=== PATIENT | female | born 1950 | race Caucasian/White ===

== ENCOUNTER 2019-08-12 11:04 | Inpatient (IN) | payer OTHER, MEDICAID ==
[~2019-08-12] VITALS: Ht 165.1 cm; Wt 65.0 kg
--- NOTE | 2019-08-12 11:10 | NUR ---
PT BIBA FROM HOME, C/O OF RIGHT SIDE HIP PAIN, S/P FALL FROM LAST NIGHT. PER MEDIC PATIENT FAMILY FOUND PATIENT ON THE BATHROOM FLOOR AND TRANSFERED HER TO HER BED AND THIS MORNING FAMILY CALLED MEDICS BECAUSE PT PAIN WORSEN. PER MEDICS FENTANYL 200 MCG IV WAS GIVEN IN ROUTE. PATIENT UNABLE TO TRASFER FROM GURNEY TO BED. PATIENT AAOX3, UNABLE TO RECALL LOCATION. PATIENT IS AUSTRIAN SPEAKER. PATIENT STATES SHE FELL LAST NIGHT IN THE BATHROOM, SHE FELT WEAK IN HER LEGS, COULD NOT TOLERATE PAIN ANY LONGER AND PT ASKED FAMILY TO CALL MEDICS. NO ACUTE DISTRESS NOTED AT THIS TIME, PT STATES HER WHOLE RIGHT SIDE OF BODY HURTS. PATIENT DENIES HEADACHE, DIZZINESS, COUGH, FEVER, SOB, N/V, OR ANY OTHER SYMPTOMS. PATIENT HAS RIGHT UPPER EXTREMITY SHUNT FOR DIALYSIS, +BRUIT AND THRILL, NO BLEEDING OR INJURY NOTED AT SHUNT SITE. STONG/EQUAL HAND CANNON FIRE DIRECTION SPECIALIST AND +PMCS TO NASIR UPPER EXTREMITIES. PT UNABLE TO MOVE RIGHT LEG UP OR PUSHES, BUT ABLE TO MOVE TOES, +PULSE NOTED, DECREASE MOVEMENT/SENSATION. NOTED RIGHT ANKLE FX, PT STATES FX WAS FROM MONTHS AGO, PT WEARING CAMBOOT, +PULSE,CIRCULATION AND SENSATION WITH DECREASE MOVEMENT. PAITNET IN FULL CREDIT ADVISOR, PULSE OX, GOWNED, X2 RAILS UP, CALL LIGHT WITHIN REACH, MSE DONE BY DR. TURNER, WILL CONTINUE TO MONITOR.
--- NOTE | 2019-08-12 12:18 | NUR ---
PT SLEEPING AT THIS TIME, NO ACUTE DISTRESS NOTED AT THIS TIME, CALL LIGHT WITHIN REACH, WILL CONTINUE TO MONITOR
[2019-08-12 12:36] LABS: BILIRUBIN TOTAL 1.1 mg/dL (0.20-1.00); CALCIUM 8.5 mg/dL (8.5-10.1); CARBON DIOXIDE 29.9 mmol/L (21-32); POTASSIUM SERUM 4.2 mmol/L (3.5-5.1)
[2019-08-12 12:39] LABS: ALBUMIN 1.8 g/dL (3.4-5.0); CREATININE SERUM 5.6 mg/dL (0.6-1.0); TOTAL PROTEIN, SERUM 5.6 g/dL (6.4-8.2)
--- NOTE | 2019-08-12 13:05 | NUR ---
PATIENT SLEEPING, EASY TO AROUSE BY CALLING HER NAME. PT STATES SHE HAS NO PAIN AT THIS TIME, ONLY IF SHE MOVES HER RIGHT LEG. CALL LIGHT WITHIN REACH, WILL CONTINUE TO MONITOR.
[2019-08-12 14:03] LABS: BASOPHIL % 0.1 % (0-2); PLATELET COUNT 211 x10^3mcL (130-400)
[2019-08-12 14:04] LABS: RED CELL DISTRIBUTION WIDTH 20.8 % (11.5-14.5)
--- NOTE | 2019-08-12 14:25 | NUR ---
REPORT GIVEN TO MAEVE CYR, EXT. 4023 FOR FURTHER CARE, CONFIRMED ROOM 256B, ALL QUESTIONS ADDRESSED.
--- NOTE | 2019-08-12 14:36 | NUR ---
RECEIVED PT FROM ED VIA GUERNEY, CAME IN DUE TO FALL ABOUT 2 DAYS AGO AND HAD RIGHT SIDE OF THE BODY PAIN. AAOX3-4, DENIES HEADACHE/DIZZINESS. ABLE TO FOLLOW COMMANDS. NO SOB NOTED. DENIES COUGH. O2 SAT=97%, RA. DENIES CHEST PAIN/PRESSURE. PT STATED THAT IT FEELS LIKE SOMETHING IS STUCKED ON HER CHEST, DENIES DIFFICULTY SWALLOWING, ABLE TO SPEAK IN FULL SENTENCES. DENIES ABDOMINAL DISCOMFORT, LAST BM TODAY, FORMED. W/ RFA AV SHUNT, BRUIT AND THRILL PRESENT, LAST HD YESTERDAY, STATED THAT SHE STILL URINATES BUT IN A TIFFANY SMALL AMOUNT. W/ LLE DISCOLORATION. W/ BLE EDEMA AND LLE BOOT/IMMOBILIZER (HAD LEFT FOOT FRACTURE FEW MONTHS AGO BUT HAD NO SURGERY). C/O 10/10 PAIN ON THE RIGHT SHOULDER AND RLE WORSE ON MOVEMENT. IV SITE ON THE LAC IS PATENT AND INTACT. SIDE RAILS UPX2. CALL LIGHT ON REACH. PRIMARY NURSE MAEVE AT BEDSIDE FOR CONTINUITY OF CARE. DR. WEINBERG AT BEDSIDE ASSESSING THE PATIENT.
[2019-08-12 15:06] LABS: CHOLESTEROL/HDL RATIO 12.6
[2019-08-12 15:11] LABS: T3 TOTAL 0.32 ng/mL
[2019-08-12 15:19] LABS: FREE T4 1.25 ng/dL (0.76-1.46)
[2019-08-12 15:21] VITALS: BP 118/49
[2019-08-12 15:26] VITALS: Ht 165.1 cm; Wt 65.0 kg
[2019-08-12 15:31] LABS: FREE THYROXINE INDEX 1.5 ug/dL (1.4-4.5); T4(THYROXINE) 4.3 ug/dL (4.7-13.3)
[2019-08-12] MEDS ORDERED: LEVOTHYROXIN0.137 MG PO (15:44)
[2019-08-12] MEDS ORDERED: HYDRALAZINE HCL50 MG PO (15:45)
[2019-08-12] MEDS ORDERED: LANTHANUM CARB500 MG CH (15:45)
[2019-08-12] MEDS ORDERED: CALCIUM ACETAT667 M3 PO (15:46)
[2019-08-12] MEDS ORDERED: GABAPENTIN100 M2 PO (15:46)
[2019-08-12] MEDS ORDERED: OMEPRAZOLE20 M4 PO (15:46)
[2019-08-12] MEDS ORDERED: LANTUS SOLOS100 U/M1 SC (15:47)
[2019-08-12] MEDS ORDERED: AMLODIPINE BESY10 M2 PO (16:21)
[2019-08-12] MEDS ORDERED: ASPIRIN ADULT L81 M3 PO (16:22)
--- NOTE | 2019-08-12 17:00 | NUR ---
PT STATES SHE IS HAVING PAIN TO HER R. HIP AND BACK. PRN PAIN MED GIVEN
[2019-08-12 18:15] VITALS: BP 112/52
--- NOTE | 2019-08-12 18:30 | NUR ---
PT SITTING UP IN BED A/A. BREATHING EQUAL/UNLABORED ON RA. PT STATES SHE HAS MILD PAIN TO R. SIDE. PT REPOSITIONED IN BED. BOOT TO LLE IN PLACE. IV SITE WNL. BED IN LOW POSITION, CALL LIGHT IN REACH, SAFETY PRECAUTIONS IN PLACE. WILL CONTINUE TO MONITOR
--- NOTE | 2019-08-12 19:15 | NUR ---
RECIEVED PT FROM PREVIOUS SHIFT. PT SLEEPING. RR EVEN AND UNLABORED. PT APPEARS TO BE IN NO ACUTE DISTRESS. CALL LIGHT WITHIN REACH, BED IN LOW POSITION. WILL CONTINUE TO MONITOR.
[2019-08-12 20:12] VITALS: BP 135/76
--- NOTE | 2019-08-12 22:47 | NUR ---
PT TEMPERATURE 102.9 AFTER TYLENOL. COOLING MEASURES INITIATED. DR. HARDEN NOTIFIED. WILL CONTINUE TO MONITOR.
[2019-08-13] VITALS (8 sets, daily range): BP systolic 72–108; BP diastolic 33–44
--- NOTE | 2019-08-13 01:47 | NUR ---
PT TEMPERATURE 100.4 AFTER TORADOL. PT RESTING AT THIS TIME. NO COMPLAINTS OF PAIN. RR EVEN AND UNLABORED. CALL LIGHT WITHIN REACH. BED IN LOWEST POSITION. WILL CONTINUE TO MONITOR.
--- NOTE | 2019-08-13 06:15 | NUR ---
DR HARDEN PAGED AT THIS TIME REGARDING LOW BP.
[2019-08-13 06:42] LABS: PLATELET COUNT 161 x10^3mcL (130-400)
[2019-08-13 06:49] LABS: RED CELL DISTRIBUTION WIDTH 20.9 % (11.5-14.5)
[2019-08-13 06:51] LABS: CALCIUM 8.8 mg/dL (8.5-10.1); CARBON DIOXIDE 30.7 mmol/L (21-32); POTASSIUM SERUM 4.6 mmol/L (3.5-5.1)
[2019-08-13 07:13] LABS: CREATININE SERUM 6.5 mg/dL (0.6-1.0)
--- NOTE | 2019-08-13 07:25 | NUR ---
RECEIVED PT RESTING IN BED. SLEEPING BUT AROUSABLE. RESP EVEN AND UNLABORED ON RA. NO PAIN NOTED AT THIS TIME. IV WITH NO REDNESS OR SWELLING. RFA AV SHUNT, BRUIT/THRILL PRESENT. FALL PRECAUTIONS. BED IN LOW POSITION, CALL LIGHT WITHIN REACH. WILL CONTINUE TO MONITOR.
[2019-08-13 09:45] LABS: BAND NEUTROPHIL 25 % (0-10); BASOPHIL 0 % (0-2); SEGMENTED NEUTROPHILS 70 % (37-75)
[2019-08-13 09:47] LABS: PLATELET MORPHOLOGY GIANT PLATELET SEEN; rbc morphology (normal/abnorm) ABNORMAL (NORMAL); target cell (codocyte) 1+; tear drop cell (dacryocyte) 1+
--- NOTE | 2019-08-13 13:23 | NUR ---
REPORT GIVEN TO NEL CYR FROM OR.
--- NOTE | 2019-08-13 15:31 | NUR ---
PB 76/33 (MAP 50), PT DROWSY. DR. HOLM MADE AWARE. RECEIVED ORDER FOR IV BOLUS. BOLUS INFUSING AT THIS TIME. NEL CYR FROM OR NOTIFIED OF PT'S LOW BP. DR. JANETTE MADRID ALSO AT BEDSIDE, AWARE OF PT'S LOW BP. PER DR. MADRID, OK FOR PT TO HAVE HD DONE TOMORROW.
--- NOTE | 2019-08-13 18:31 | NUR ---
PT RESTING IN BED. MORE AWAKE. BP 107/44 (MAP 65). RESP EVEN AND UNLABORED ON RA. IV WITH NO REDNESS OR SWELLING. GEN WEAKNESS. FALL PRECAUTIONS. SPOKE WITH SALES TRAINEE AND INFORMED THEM OF HD SCHEDULED FOR TOMORROW. BED IN LOW POSITION, CALL LIGHT WITHIN REACH. WILL ENDORSE TO ONCOMING SHIFT.
--- NOTE | 2019-08-13 19:50 | NUR ---
RECEIVED PT IN BED AAO HUNGARIAN SPEAKING ONLY , LUNG SOUNDS DIMINISHED , ON 2L N/C SAT 98% , PT C/O HIP PAIN WILL MEDICATE PT ORDERED PRN , AV GRAFT TO RIGHT UPPER ARM WITH GOOD BRUIT/THRILLS , NO ACUTE DISTRESS NOTED , CALL LIGHT WITHIN PT'S REACH , WILL CONT TO MONITOR PT CLOSELY .
[2019-08-14] VITALS (12 sets, daily range): BP systolic 88–128; BP diastolic 37–79
--- NOTE | 2019-08-14 01:40 | NUR ---
PT'S IN BED WITH EYES CLOSED . RESP EVEN .
--- NOTE | 2019-08-14 03:39 | NUR ---
SPOT CHECK BLOOD SUGAR 124. PT'S IN BED WITH NO ACUTE DISTRESS NOTED .
--- NOTE | 2019-08-14 06:02 | NUR ---
I HAVE REVIEWED THE DATA COLLECTION BY MARVIN (NAME):SHI CAMERON ENTERED ON (DATE/TIME):08/13/2019 I CONCUR WITH THE DATA AND ANY EXCEPTIONS OR COMMENTS ARE LISTED BELOW:
--- NOTE | 2019-08-14 06:10 | NUR ---
BP 90/[address] Delgado aware ok to give 0900 midodrine po .
--- NOTE | 2019-08-14 06:22 | NUR ---
PT'S VERY LETHARGIC WAS ABLE TO SWALLOW HER MEDS , TEMP 101.5 WILL NOTIFY .
--- NOTE | 2019-08-14 06:27 | NUR ---
POST BATH PT BECOME MORE LETHARGIC TEMP 101.5 BP 76/[address] MCKEON AT THE BED SIDE ASSESED PT ORDERED 1L OF NS BOLUSE X1 AND TO RE-ASSESS PT .
--- NOTE | 2019-08-14 06:50 | NUR ---
STARTED NS BOLUSE AT 0630.
--- NOTE | 2019-08-14 06:51 | NUR ---
PLACED PT ON TELE NUMBER 47 SHOWS SB HR 56
[2019-08-14 07:14] LABS: CALCIUM 9.5 mg/dL (8.5-10.1); CARBON DIOXIDE 25.4 mmol/L (21-32); MAGNESIUM 2.5 mg/dL (1.8-2.4); PHOSPHOROUS 3.2 mg/dL (2.5-4.9); POTASSIUM SERUM 4.9 mmol/L (3.5-5.1)
--- NOTE | 2019-08-14 07:15 | NUR ---
TELEPHONE CALL FROM JACQUE IN LAB REPORTING BUN 65 CREAT 6.8, WILL RELAY RESLTS TO
[2019-08-14 07:16] LABS: CREATININE SERUM 6.8 mg/dL (0.6-1.0)
--- NOTE | 2019-08-14 07:22 | NUR ---
TYLENOL PT GIVEN ORDERED FOR TEMP .
--- NOTE | 2019-08-14 07:30 | NUR ---
RECEIVED PATIENT FROM PM NURSE, THEO AND ORIENTED X 1, MINIMALLY RESPONSIVE TO VERBAL STIMULI, LUNG SOUNDS CLEAR ON RA, PATIENT MOANING AND C/O PAIN UNABLE TO DESCRIBE LOCATION, PATIENT ON TELEMTRY SB 58 BPM, BOWEL SOUNDS ACTIVE BM DURIING ASSESMENT, PEDAL PULSES EQUAL AND PRESENT, TRACE EDEMA IN BLE, CURRENT BP 91/38, WILL CONTINUE TO MONITOR PATIENT
--- NOTE | 2019-08-14 07:35 | NUR ---
POST NS 1L BOLUSE BP 91/38 MAP 65 HR 55 , DR HOLM AWARE .
--- NOTE | 2019-08-14 09:00 | NUR ---
PATIENT TRANSPORTED TO OR FOR ORIF OF R HIP, REPORT GIVEN TO OR NURSE
--- NOTE | 2019-08-14 11:18 | NUR ---
RECEIVED PT FROM OR S/P ORIF OF RIGHT HIP. PT SEDATED, LETHARGIC. PT OPENS EYES TO TACTILE/VERBAL STIMULUS. PT ON 2L NC WITH RR 7-10 AT THIS TIME. O2 SAT 96-100%. PT ON TELE ICU 6 WITH HR 71, NO CHEST DISCOMFORT NOTED. IV ACCESS LEFT ARM, CDI. SALINE LOCKED. PERIPHERAL PULSES PALPABLE, SOME EDEMA NOTED TO LEFT ANKLE. ACTIVE BS NOTED. ABDOMEN SOFT. PT HAD BM THIS AM, PER FLOOR NURSE. PT OLIGURIC, ON HEMODIALYSIS T,,FR. PT TO HAVE HD TODAY. PT HAS AV GRAFT TO RIGHT FOREARM. PT WITH NO DISCOMFORT NOTED AT THIS TIME. SAFETY MEASURES IN PLACE, BED LOW AND LOCKED. CALL LIGHT WITHIN REACH.
--- NOTE | 2019-08-14 12:36 | NUR ---
PT OPENS EYES TO VERBAL STIMULUS AT THIS TIME. RESPONSIVE WITH NOD AT THIS TIME. PT LETHARGIC, VSS. NO DISCOMFORT NOTED AT THIS TIME.
--- NOTE | 2019-08-14 13:25 | NUR ---
XRAY AT BEDSIDE FOR LEFT ANKLE.
--- NOTE | 2019-08-14 13:39 | NUR ---
DR MADRID AT BEDSIDE AT THIS TIME. PT TO BE DIALYZED TODAY.
[2019-08-14 14:00] LABS: RED CELL DISTRIBUTION WIDTH 21.3 % (11.5-14.5)
[2019-08-14 14:01] LABS: BASOPHIL % 0 % (0-2); PLATELET COUNT 118 x10^3mcL (130-400)
--- NOTE | 2019-08-14 14:02 | NUR ---
LAB CALLED WITH CRITICAL WBC 21.3. DR MCKEON AWARE.
--- NOTE | 2019-08-14 15:40 | NUR ---
PT TO HAVE HEMODIALYSIS LATER. OK BY DR MCKEON TO INFUSE ANTIBIOTICS NOW.
--- NOTE | 2019-08-14 16:05 | NUR ---
PHYSICAL THERAPIST AT BEDSIDE AT THIS TIME. PT LETHARGIC, OPENS EYES TO VERBAL/TACTILE STIMULUS.
--- NOTE | 2019-08-14 16:47 | NUR ---
UNABLE TO GIVE PO MEDICATIONS. PT LETHARGIC AND SEDATED S/P ORIF OF RIGHT HIP. BS 168, PT NOT EATING. INSULIN HELD AT THIS TIME. ANTIBIOTIC ADMINISTERED AT THIS TIME, PT TO HAVE HEMODIALYSIS LATER TODAY. DR MCKEON AWARE. NO ACUTE DISTRESS NOTED AT THIS TIME. SAFETY MAINTAINED.
--- NOTE | 2019-08-14 16:55 | NUR ---
CXR AT BEDSIDE AT THIS TIME.
--- NOTE | 2019-08-14 17:28 | NUR ---
DR LAMBERT AT BEDSIDE AT THIS TIME.
--- NOTE | 2019-08-14 18:48 | NUR ---
VSS. PT STILL SEDATED S/P ORIF. LETHARGIC. RESPONDS TO VERBAL/TACTILE STIMULUS, ABLE TO RESPOND BY NODDING. CHUCKS CHANGED AT THIS TIME. NO ACUTE DISTRESS OR DISCOMFORT NOTED AT THIS TIME. ALL NEEDS TENDED TO THROUGHOUT SHIFT. WILL CONTINUE TO MONITOR AND ENDORSE CARE TO SEX CRIMES DETECTIVE.
--- NOTE | 2019-08-14 19:01 | NUR ---
RECIEVED REPORT FROM NAA CYR. NURSING UPDATES. POC DISCUSSED. SEE SHIFT ASSESSMENT FOR ASSESSMENT.
--- NOTE | 2019-08-14 19:58 | NUR ---
DR PEREZ @ BEDSIDE. NURSING UPDATES. POC DISCUSSED. NEW ORDERS IMPLEMENTED.
--- NOTE | 2019-08-14 21:45 | NUR ---
PT GIVEN PRN NORCO PER PT MOANING IN PAIN. SEE MAR.
--- NOTE | 2019-08-14 22:18 | NUR ---
ADM PRN MORPHINE PER PT ACKNOWLEDGING PAIN AND MOUNING. WILL CONT TO MONITOR.
--- NOTE | 2019-08-14 22:19 | NUR ---
Spoke to with new orders. New order noted and carried out. Will continue to monitor.
[2019-08-15 03:10] VITALS: BP 111/46
[2019-08-15 05:42] LABS: PLATELET COUNT 89 x10^3mcL (130-400); RED CELL DISTRIBUTION WIDTH 20.3 % (11.5-14.5)
[2019-08-15 05:51] LABS: CALCIUM 8.8 mg/dL (8.5-10.1); CARBON DIOXIDE 32.7 mmol/L (21-32); MAGNESIUM 1.9 mg/dL (1.8-2.4); PHOSPHOROUS 2.6 mg/dL (2.5-4.9); POTASSIUM SERUM 3.5 mmol/L (3.5-5.1)
[2019-08-15 05:54] LABS: CREATININE SERUM 4.2 mg/dL (0.6-1.0)
[2019-08-15 06:08] LABS: MONOCYTE 1 % (0-7); SEGMENTED NEUTROPHILS 85 % (37-75)
[2019-08-15 06:11] LABS: rbc morphology (normal/abnorm) ABNORMAL (NORMAL)
[2019-08-15 06:12] LABS: PLATELET MORPHOLOGY PLATELETS DECREASED
[2019-08-15 08:06] VITALS: BP 129/53
--- NOTE | 2019-08-15 11:04 | NUR ---
REPORT GIVEN TO KYRA CYR. PATIENT WILL GO TO ROOM 210B.
[2019-08-15 11:30] VITALS: BP 116/45
--- NOTE | 2019-08-15 11:41 | NUR ---
PATIENT RECEIVED FROM ICU. APPEARED TO BE IN PAIN DESPITE RECEIVING MORPHINE AND NORCO A FEW HOURS PRIOR. PATIENT IS A&OX3 TO PERSON, PLACE AND SITUATION. TELE PATIENT, DENIES CHEST PAIN, NSR. PERIPHERAL PULSES PALPABLE W/ LLE +1 EDEMA. LUNG SOUNDS CTA BILATERALLY, ON RA, O2 SAT 96%, DENIES SOB. NORMOACTIVE BSX4, ABD SOFT AND FLAT. VOIDS USING BEDPAN. BEDREST AT THIS TIME. WEARING BOOT ON LLE. LLE WAS FRACTURED 1 MONTH PRIOR AND WAS NOT TREATED AND IS SWOLLEN. SURGICAL DRESSINGS ON R HIP IS CDI. IV SITE IS CDI. WILL CONTINUE TO MONITOR PATIENT.
[2019-08-15 17:12] VITALS: BP 119/65
--- NOTE | 2019-08-15 18:41 | NUR ---
PATIENT REMAINS TO BE LETHARGIC AT THIS TIME. PATIENT RESPIRATORY RATE WNL. PATIENT DOES NOT EXPRESS ANY PAIN AT THIS TIME. INSULIN WITHHELD DUE TO PATIENT'S MINIMAL APPETITE. WILL CONTINUE TO MONITOR PATIENT AND ENDORSE TO INSURANCE UNDERWRITER NURSE.
--- NOTE | 2019-08-15 19:30 | NUR ---
PT RECIEVED FROM DAY NURSE. PT RESTING IN BED. PT IS LETHARGIC, NON-VERBAL. UNABLE TO COMMUNICATE ORIENTATION. PT WAS ABLE TO SWALLOW. TELE 15, NSR. PAPABLE PULSES, NO EDMEMA PRESENT. CLEAR LUNG SOUNDS, RMA. BREATHING E/U. BOWEL SOUNDS ACTIVE. PT HAS GENERALIZED WEAKNESS. PT HAD ECCYMOSIS ON BUE. AV FISTULA NOTED ON THE RFA, BRUIT PRESENT. TWO BANDAGES NOTED ABOVE THE FISTULA. IV TO THE L HAND, CDI. WILL CONTINUE TO MONITOR.
[2019-08-15 20:48] VITALS: BP 122/47
--- NOTE | 2019-08-16 00:55 | NUR ---
PT IS RESTING IN BED AT THIS TIME. PT IS SLEEPING. BREATHING E/U, ON 3L NC. NO S/S OF ACUTE DISTRESS AT THIS TIME. ALL NEEDS AND CONCERNS MET AT THIS TIME. CALL LIGHT WITHIN REACH. WILL CONTINUE TO MONITOR.
[2019-08-16 01:50] VITALS: BP 118/46; BP 134/74
[2019-08-16 05:31] VITALS: BP 136/55
--- NOTE | 2019-08-16 06:59 | NUR ---
PT IS RESTING IN BED AT THIS TIME. PT DENIES PAIN OR DISCOMFORT. BREATHING E/U, ON 3L NC. NO S/S OF ACUTE DISTRESS AT THIS TIME. ALL NEEDS AND CONCERNS MET DURING THIS SHIFT. WILL ENDORSE TO DAY NURSE.
[2019-08-16 07:26] LABS: CALCIUM 9.1 mg/dL (8.5-10.1); MAGNESIUM 2.2 mg/dL (1.8-2.4); PHOSPHOROUS 3.3 mg/dL (2.5-4.9)
--- NOTE | 2019-08-16 07:32 | NUR ---
RECIEVED REPORT FROM LAB. CRITICAL RESULT OF CREATININE 5.1. WILL ENDORSE TO PROVIDER OVER CARE.
[2019-08-16 07:33] LABS: CREATININE SERUM 5.1 mg/dL (0.6-1.0)
--- NOTE | 2019-08-16 07:43 | NUR ---
NURSE PRACTIONER LEVI AWARE OF ELEVATED CREATININE LEVELS REGARDING THIS PATIENT. EXAMINATION SUPERVISOR CONTACTED. NO CHANGE IN ORDERS AT THIS TIME.
--- NOTE | 2019-08-16 07:44 | NUR ---
RECIEVED REPORT FROM [facility] NURSE. PATIENT CURRENTLY AWAKE ALERT AND ORIENTED X 2. PATIENT REMAINS VERY LETHARGIC POST RIGHT HIP ORIF PROCEDURE ON 08/16/19. PATIENT ON THREE LITERS NASAL CANNULA SATURATING AT 96%. RESPIRATIONS EVEN AND UNLABORED. NO REPORT OF PAIN AT THIS TIME FROM PATIENT. NO SIGNS OF PAIN UPON ASSESSMENT. PATIENT RECIEVED HEMODIALYS MONDAYS, WEDNESDAYS, AND FRIDAYS. RECIEVED REPORT FROM LAB PATIENT HAS ELEVATED CREATININE LEVEL OF 5.1 PER MORNING LABS. NURSE PRACTIONER PROSIDING OVER CARE IS AWARE. NO CHANGE IN ORDERS AT THIS TIME. WILL CONTINUE TO MONITOR PATIENT. SAFETY PRECATUIONS IN PLACE. FALL PRECAUTIONS IN PLACE. CALL LIGHT WITHIN REACH. PATIENT INSTRUCTED TO UTILIZE THE CALL LIGHT AND CALL FOR NURSE AND PATIENT VERBALIZES UNDERSTANDING THAT SHE IS NOT TO RISE FROM BED INDEPENDENTLY. IV CURRENTLY TO THE LEFT HAND INFUSING NS AT TKO RATE. WILL CONTINUE TO PROVIDE CARE FOR PATIENT.
[2019-08-16 09:22] VITALS: BP 115/44
[2019-08-16 13:22] LABS: PLATELET COUNT 79 x10^3mcL (130-400); RED CELL DISTRIBUTION WIDTH 19.1 % (11.5-14.5)
[2019-08-16 13:23] VITALS: BP 118/48
[2019-08-16 13:39] LABS: BAND NEUTROPHIL 3 % (0-10); BASOPHIL 0 % (0-2); MONOCYTE 3 % (0-7); SEGMENTED NEUTROPHILS 89 % (37-75); rbc morphology (normal/abnorm) NORMAL (NORMAL)
--- NOTE | 2019-08-16 15:53 | NUR ---
PATIENT CURRENTLY OBSERVED RESTING IN BED. PATIENT REMAINS ON THREE LITER NASAL CANNULA. MORPHINE GIVEN FOR PAIN CONTROL.
[2019-08-16 16:18] VITALS: BP 129/55
--- NOTE | 2019-08-16 18:38 | NUR ---
PATIENT CURRENTLY OBSERVED RESTING IN BED. RESPIRATION EVEN, EQUAL, AND UNLABORED. PATIENT REMAINS ON THREE LITERS NASAL CANNULA AND IS SATURATING AT 95%. PATIENT REFUSED TO EAT LUNCH OR DINNER DESPITE SPAR CAP BEVELER AND RN ASSISTANCE WITH FEEDING. IV CURRENTLY INFUSING NS TO LFA AT TKO RATE. CURRENTLY AWAITING PHYSICAL THERAPY RECOMMENDATIONS FOR EITHER SNF OR HOME HEALTH. WILL ENDORSE ALL FURTHER CARE TO THE NOC NURSE.
--- NOTE | 2019-08-16 19:20 | NUR ---
RECEIVED PT IN BED LETAHRGIC. SHE OPENS HER EYES TO VERBAL STIMULI. PER AM NURSE PT BECAME LETHARGIC AFTER SHE WAS MEDICATED W/ MORPHINE. PT'S RESP. EVEN AND UNLABORED. ON O2 AT 3L VIA N/C. SHE APPEARS CALM AND NOT IN PAIN. RT HIP SX SITES W/ DRESSINGS INTACT. W/ IMMOBILZER TO LT LEG , HL TO LT HAND INTACT. CALL LIGHT W/IN REACH.
[2019-08-16 20:39] VITALS: BP 117/46
--- NOTE | 2019-08-16 21:10 | NUR ---
WOKE UP PT FOR MEDICATION. PT WAS ABLE TO TAKE ONLY LESS THAN HALF OF MEDS MIXED W/ APPLE SAUCE. PT WENT BACK TO SLEEP RIGHT AWAY.
--- NOTE | 2019-08-17 02:00 | NUR ---
STARTED ANOTHER IV ON THE LTAC ( FOR ALTERNATE IV ACESS) W/ G 22.
--- NOTE | 2019-08-17 03:53 | NUR ---
PT REMAINS ASLEEP. NO S/S OF DISTRESS.
[2019-08-17 05:00] VITALS: BP 139/42
--- NOTE | 2019-08-17 05:02 | NUR ---
PT REMAINS ASLEEP. SHE HAD NO C/O PAIN. DUE IV ABX GIVEN. DRESSING TO RT HIP INTACT. IMMOBILIZER TO LT LEG IN PLACE. PT W/ ORDER FOR HEMODIALYSIS TODAY. ALL NEEDS ATTENDED TO.
[2019-08-17 09:03] LABS: CARBON DIOXIDE 26.4 mmol/L (21-32); POTASSIUM SERUM 4.7 mmol/L (3.5-5.1)
[2019-08-17 09:07] VITALS: BP 156/54
[2019-08-17 09:07] LABS: CREATININE SERUM 6.1 mg/dL (0.6-1.0)
[2019-08-17 10:02] LABS: PLATELET COUNT 80 x10^3mcL (130-400); RED CELL DISTRIBUTION WIDTH 19.9 % (11.5-14.5)
--- NOTE | 2019-08-17 10:37 | NUR ---
HD NURSE HERE TO PERFORM HEMODIALYSIS.
[2019-08-17 12:31] LABS: BAND NEUTROPHIL 9 % (0-10); BASOPHIL 0 % (0-2); MONOCYTE 3 % (0-7); SEGMENTED NEUTROPHILS 74 % (37-75)
[2019-08-17 12:32] LABS: PLATELET MORPHOLOGY LARGE PLATELET SEEN; rbc morphology (normal/abnorm) ABNORMAL (NORMAL); target cell (codocyte) 1+
[2019-08-17 13:42] VITALS: BP 108/48
--- NOTE | 2019-08-17 13:45 | NUR ---
HD COMPLETED 2L OUT
--- NOTE | 2019-08-17 13:56 | NUR ---
PHYSICAL THERAPY DAILY NOTES CO-SIGN All documentation done by the Canal Superintendent for 08/17/19 has been reviewed. I agree with the documentation. Reviewed/Co-Signed by: Tra Shetty PT Documentation Done by:BLANCA NOGUEIRA PUNCH HAND POC REVIEWED W/ PUNCH HAND
[2019-08-17 15:59] VITALS: BP 159/60
--- NOTE | 2019-08-17 17:03 | NUR ---
LETHARGAIC AND EYES CLOSED. DOES NOT RESPOND TO VERBAL. TOO LETHARGIC TO EAT. LUNG SOUNDS CLEAR,DIMINISHED. 3L NC. TOTAL CARE. DRESSING TO RT HIP X 2 CDI. SKIN WARM TO TOUCH. PALPABLE PULSES. SOFT BOOT TO LEFT ANKLE. BED IN LOW POSITION. BED ALARM ON. SR UP X 2
[2019-08-17 19:20] VITALS: BP 143/56
--- NOTE | 2019-08-17 19:32 | NUR ---
PT HAS BEEN VERY LETHARGIC ENTIRE SHIFT. UNABLE TO EAT OR TAKE ORAL MEDS. PERFORMANCE TEST CONSULTANT MONTSE NOTIFIED EARLY IN SHIFT. TOTAL CARE. PT WAS MOANING WITH ELEVATED BP MORPHINE ADMIN FOR PAIN. HIP DRESSINGS CDI. HEPARIN NOT ADMIN FOR PLT 80.
--- NOTE | 2019-08-17 19:40 | NUR ---
RECEIVED PT RESPONSIVE TO VERBASL/TACTILE STIMULI,WOULD OPEN EYES AND CLOSED RIGHT AWAY.LETHARGIC.BREATHING EASY AND NON-LABORED.S/O R HIP ORIF 08/13.INCISION TO R HIP X2 WITH SOME SLIGHT DRAINAGE.L LEG IMMOBILIZER IN PLACED.AV SHUNT TO RFA WITH GOOD BRUIT.BUE SWELLING/EDEMA NOTED.LAST HEMODIALYSIS TODAY.WILL ANTICIPATE ALL NEEDS.BP 143/56 MMHG,HR 84.WILL CONTINUE TO MONITOR.
--- NOTE | 2019-08-17 20:54 | NUR ---
HELD PO TOBIN ASHTON.PT HIGH RISK FOR ASPIRATION.ATTEMPTED BEDSIDE SWALLOW EVAL BUT WON'T EVEN OPEN HER MOUTH,WOULD POCKET IN HER MOUTH WHEN ABLE TO PUT SOMETHING IN HER MOUTH.GOOD ORAL CARE PROVIDED,HOB ELEVATED.WILL INFORM MD.
--- NOTE | 2019-08-18 04:39 | NUR ---
PT SLEPT WELL,EPISODES OF MOANING.MORE RESPONSIVE TO VERBAL AND TACTILE STIMULI.GOOD ORAL CARE PROVIDED.REPOSITIONED Q2H FOR CIRCULATION AND COMFORT.NO ASE NOTED FROM VANCO AND DAX IV ATB. AWARE OF PT HIGH RISK FOR ASPIRATION AND MEDS HELD LAST NIGHT.ALL NEEDS MET.WILL CONTINUE TO MONITOR.
[2019-08-18 05:42] VITALS: BP 146/53
[2019-08-18 06:43] LABS: CARBON DIOXIDE 27.8 mmol/L (21-32)
[2019-08-18 06:48] LABS: CREATININE SERUM 4.6 mg/dL (0.6-1.0)
[2019-08-18 07:09] LABS: RED CELL DISTRIBUTION WIDTH 19.7 % (11.5-14.5)
--- NOTE | 2019-08-18 07:15 | NUR ---
SEEN AOX1 , NOT IN DISTRESS, LETHARGIC, TELE 15, NSR, DIASTOLIC MURMUR AT 2ND RICS, PARASTERNAL LINE, PALPABLE PULSES, EDEMA , AT BUE, NO EDEMA BLE, 3LPM VIA NC O2 SAT 100%, CTA ON BLF, +BS, OLIGURIC, AV SHUNT RFA , + BRUIT, GENERALIZED WEAKNESS, LIMITED ROM, L LEG IMMOBILIZER IN PLACE, R HIP INCISION CDI, NO PAIN AT THIS TIME, IV INTACT AND PATENT AT LH AND LAC. NO REDNESS OR SWELLING. CALL LIGHT WITHIN REACH. BED AT LOWEST POSITION, SIDE RAILS UP.
[2019-08-18 08:32] VITALS: BP 138/55
--- NOTE | 2019-08-18 08:35 | NUR ---
ZOSYN INFUSING WELL AT 100CC/HR. NO REDNESS OR SWELLING TO LFA. MEDICATIONS NOT GIVEN . PATIENT LETHARGIC AND AT RISK FOR ASPIRATION. HEPARIN NOT GIVEN . PLT 111.
[2019-08-18] MEDS ORDERED: HEP5I SC (09:06)
[2019-08-18] MEDS ORDERED: PROA PO (09:06)
[2019-08-18] MEDS ORDERED: PRO10I SQ (09:07)
[2019-08-18] MEDS ORDERED: NOVAPLUS ZOSYN50 ML IV (09:16)
[2019-08-18 10:57] LABS: BAND NEUTROPHIL 2 % (0-10); MONOCYTE 3 % (0-7); SEGMENTED NEUTROPHILS 87 % (37-75)
[2019-08-18 10:58] LABS: rbc morphology (normal/abnorm) NORMAL (NORMAL)
[2019-08-18 11:04] LABS: PLATELET COUNT 111 x10^3mcL (130-400)
--- NOTE | 2019-08-18 11:12 | NUR ---
SPOKE TO VIN FROM [facility] AND SAYS PT IS POSSIBLY GOING TO [facility] AND [facility] DOESN'T REQUIRE COVID TEST FOR PT. CLEMENT CYR ASSIGNED TO THIS PT MADE AWARE OF ABOVE.
[2019-08-18 12:10] VITALS: BP 138/59
--- NOTE | 2019-08-18 13:00 | NUR ---
REPORT GIVEN TO RN AT [facility].
[2019-08-18 15:03] VITALS: BP 138/59
--- NOTE | 2019-08-18 15:09 | NUR ---
Initial Nutrition Assessment: 210B RADU GANDARA 69F MR IA Dx: right hip fracture PMHx: Hypothyroidism, CAD, HTN, ESRD PSHx: none noted Labs: (08/17) Glu 160H, BUN 45H, Cr 4.6H, H/H 8.4/27L Meds: Colace, Fosernol, Neurontin, phoslo, Pro-amatine, Procrit, Prilosec, Synthroid, Vancomycin, Zosyn PRN meds: D50%, Humulin, morphine, Tylenol, Zofran Diet: Cardiac, renal diet PO intake since admission: 40-60% x 2 meals with average intake of 50%. Swallow evaluation pending. Ht: 165.1cm/65in Wt: 65kg/143lbs BMI: 23.8 Bed scale: unknown IBW: 56.82kg/125lbs %IBW: 114% UBW: unknown Age: 69 Food Allergies: unknown Edema: edema noted to BUE Last BM: 08/13 Skin: incision to right hip Nav: 15 Per H and P (08/11), pt is a 69 yo female with PMH of hypothyroidism, CAD, HTN, DM type 2, ESRD on HD TTS who was BIBA from home for severe right hip pain. The patient fell the day before yesterday when she was in the bathroom, she said her legs gave out and fell on her right side, and called her son to help her, who got her to bed. She mentioned that she did hit her head, but didn't lose consciousness. After the fall she was feeling pain on the right side of her hip, she describes the pain as sharp, 10/10 non- radiating, aggravated by movement and alleviated by staying still. She tried Tylenol for the pain at home but it didn't help. Her son decided to send her to the hospital today, so he called 911. Patient had a similar fall one or two months ago and twisted or broke her left ankle, for which she is still wearing boot which helps her to walk for very short distance. Patient had her last dialysis session yesterday at [facility], she doesn't know the name of her PCP or brick molder hand. Patient also feels something stuck in her throat when she swallows but she is able to eat her meals and take her medications normally, never chocked. She also has some nausea but didn't vomit. Pt was admitted with dx: right hip fracture, leukocytosis, ESRD on HD (TTS), DMIC, h/o HTN, h/o hypothyroidism, DVT RD Note (08/17) Pt was lethargic and moaning during visit. Per pt's primary RN, pt had low PO intake d/t being lethargic and difficulties swallowing. RN reported that they paused food and also medication d/t her swallowing difficulties, and pt was moaning possibly d/t morphine. Pt will likely to be discharge back to [facility] per RN. Problem with: N/V/D/C: unknown d/t pt lethargic Problems with: Chewing: Swallowing: swallowing difficulties, swallow eval pending Current appetite: poor d/t being lethargic and swallow difficulties per RN Recent wt change: Unknown %wt change: unknown Height: unknown Vitamin/Supplement use: unknown Special diet at home: unknown Physical activity: unknown Nutrition education given (specify specific nutrition education and handout given): No education was provided at this time. Food-drug interactions? Education given? n/a Estimated Nutritional Needs Based on current body weight (65kg) Energy: 9029-2845 kcal/day (30-35 kcal/kg for ESRD on HD) Protein: 78-91 g/day (1.2-1.4 g/kg for ESRD on HD) Fluid: HD output +1L day or per MD Nutrition Diagnosis: 1. Swallowing difficulty r/t pathophysiological cause a/e/b RN reported medication and food was not given at the moment d/t the concern of swallowing difficulty. 2. Increased energy and protein needs r/t hypermetabolic state a/e/b pt has ESRD on HD. Intervention 1. Recommend resume cardiac, renal diet with texture and liquid consistency recommended by swallow evaluation. Monitor/Evaluate Goal: PO intake at least 75% of estimated needs Monitor: PO intake, Labs, GI function, Body weight F/U in 2-3 days as high risk 08/19-
--- NOTE | 2019-08-18 15:09 | NUR ---
1. Recommend resume cardiac, renal diet with texture and liquid consistency recommended by swallow evaluation.
--- NOTE | 2019-08-18 15:21 | NUR ---
PHOTOGRAPHIC WOUND EVIDENCE TAKEN . PLACED ON CHART. DISCHARGE PAPERS AND TRANSFER ACKNOWLEDGEMENT SIGNED VIA VERBAL PHONE BY DAUGHTER IN LAW MONO NORRIS. PATIENT CHANGED TO ORANGE GOWN. BELONGINGS GIVEN TO TRANSPORTER. IV IN PLACE . ID BAND REMOVED. TELEMONITOR REMOVED.
--- NOTE | 2019-08-18 15:27 | NUR ---
PATIENT DISCHARGED PER ERIONE . TRANSPORTED BY [facility].
[2019-08-23] MEDS ORDERED: NOR10 PO (21:31)
[2019-08-23] MEDS ORDERED: HYDRALAZINE HCL50 MG PO (21:32)
[2019-08-23] MEDS ORDERED: TOPROL XL25 MG PO (21:32)
== END 2019-08-18 15:45 | DRG 853 ==
LOC: ED 11:04 → DU 13:44 → MU 13:44 → IC 13:44 → MU 14:37 → IC 08-14 08:38 → MU 08-14 08:57 → IC 08-14 10:36 → DU 08-15 11:23
PROVIDERS: Emergency Medicine; Internal Medicine; Orthopaedic Surgery; ADMIT Student in an Organized Health Care Education/Training Program
PROC: 5A1D70Z Performance of Urinary Filtration, Intermittent, Less than 6 Hours Per Day (ICD-10-PCS; 2019-08-14)
PROC: 0QS636Z Reposition Right Upper Femur with Intramedullary Internal Fixation Device, Percutaneous Approach (ICD-10-PCS; principal; 2019-08-14 08:00)
PROC: 5A1D70Z Performance of Urinary Filtration, Intermittent, Less than 6 Hours Per Day (ICD-10-PCS; 2019-08-17)
DX: A41.51 Sepsis due to Escherichia coli [E. coli] (principal); S72.141A Displaced intertrochanteric fracture of right femur, initial encounter for closed fracture; N18.6 End stage renal disease; S32.501A Unspecified fracture of right pubis, initial encounter for closed fracture; S32.10XA Unspecified fracture of sacrum, initial encounter for closed fracture; N39.0 Urinary tract infection, site not specified; I12.0 Hypertensive chronic kidney disease with stage 5 chronic kidney disease or end stage renal disease; D72.829 Elevated white blood cell count, unspecified; E11.22 Type 2 diabetes mellitus with diabetic chronic kidney disease; I95.9 Hypotension, unspecified; E03.9 Hypothyroidism, unspecified; W18.30XA Fall on same level, unspecified, initial encounter; Y93.9 Activity, unspecified; Z99.2 Dependence on renal dialysis; Z79.899 Other long term (current) drug therapy; Z79.4 Long term (current) use of insulin; Z79.82 Long term (current) use of aspirin
CPT/HCPCS: 36600; 82962; 83880; 84439; 97110-GP; 97112-GP; 97530-GP; G0378; J0456; J0690; J0696; J1644; J1885; J2270; J2543; J2704; J3010; J3370; J3490; J7030; J7040; J7050; J7120; Q0092

== ENCOUNTER 2019-08-18 18:27 | Inpatient (IN) | payer OTHER, MEDICAID, SELFPAY ==
[~2019-08-18] VITALS: Ht 165.1 cm; Wt 67.6 kg
[~2019-08-18 18:27] MED LIST: AMLODIPINE BESY10 M2 PO; ASPIRIN ADULT L81 M3 PO; CALCIUM ACETAT667 M3 PO; GABAPENTIN100 M2 PO; HEP5I SC; HYDRALAZINE HCL50 MG PO; LANTHANUM CARB500 MG CH; LANTUS SOLOS100 U/M1 SC; LEVOTHYROXIN0.137 MG PO; NOVAPLUS ZOSYN50 ML IV; OMEPRAZOLE20 M4 PO; PRO10I SQ; PROA PO
[2019-08-18 18:39] VITALS: Ht 165.1 cm; Wt 67.6 kg
[2019-08-18 19:53] LABS: BILIRUBIN TOTAL 2.1 mg/dL (0.20-1.00); CALCIUM 8.4 mg/dL (8.5-10.1); CARBON DIOXIDE 25.3 mmol/L (21-32); POTASSIUM SERUM 4.4 mmol/L (3.5-5.1)
[2019-08-18 19:54] LABS: ALBUMIN 1.4 g/dL (3.4-5.0)
[2019-08-18 19:56] LABS: CREATININE SERUM 5.3 mg/dL (0.6-1.0)
[2019-08-18 19:57] LABS: BASOPHIL % 0 % (0-2); PLATELET COUNT 121 x10^3mcL (130-400); RED CELL DISTRIBUTION WIDTH 19.7 % (11.5-14.5)
[2019-08-18 20:41] LABS: microscopic required? YES; urine erythrocyte NEGATIVE (NEGATIVE)
[2019-08-18 22:49] VITALS: BP 88/43
[2019-08-19] VITALS (8 sets, daily range): BP systolic 95–137; BP diastolic 41–57
[2019-08-19 06:51] LABS: CALCIUM 8.4 mg/dL (8.5-10.1); CARBON DIOXIDE 27.1 mmol/L (21-32); MAGNESIUM 2.3 mg/dL (1.8-2.4); PHOSPHOROUS 5.3 mg/dL (2.5-4.9); POTASSIUM SERUM 4.7 mmol/L (3.5-5.1)
[2019-08-19 07:02] LABS: CREATININE SERUM 5.8 mg/dL (0.6-1.0)
[2019-08-19 07:43] LABS: PLATELET COUNT 129 x10^3mcL (130-400); RED CELL DISTRIBUTION WIDTH 20.1 % (11.5-14.5)
[2019-08-19 12:19] LABS: ATYPICAL LYMPH 1 %; BAND NEUTROPHIL 1 % (0-10); BASOPHIL 0 % (0-2); MONOCYTE 7 % (0-7); SEGMENTED NEUTROPHILS 42 % (37-75); rbc morphology (normal/abnorm) ABNORMAL (NORMAL)
[2019-08-19 12:20] LABS: PLATELET MORPHOLOGY PLATELETS DECREASED
[2019-08-20 06:01] VITALS: BP 131/56
[2019-08-20 06:42] LABS: CALCIUM 7.9 mg/dL (8.5-10.1); CARBON DIOXIDE 26.6 mmol/L (21-32); POTASSIUM SERUM 4.7 mmol/L (3.5-5.1)
[2019-08-20 06:50] LABS: CREATININE SERUM 6.7 mg/dL (0.6-1.0)
[2019-08-20 07:15] LABS: PLATELET COUNT 155 x10^3mcL (130-400)
[2019-08-20 07:23] LABS: BASOPHIL % 0 % (0-2); RED CELL DISTRIBUTION WIDTH 20.2 % (11.5-14.5)
[2019-08-20 08:26] VITALS: BP 133/57
[2019-08-20 12:04] LABS: burr cell (echinocyte) 1+
[2019-08-20 12:05] LABS: rbc morphology (normal/abnorm) ABNORMAL (NORMAL)
[2019-08-20 12:12] VITALS: BP 117/42
[2019-08-20 12:39] LABS: ALBUMIN 1.5 g/dL (3.4-5.0); BILIRUBIN DIRECT 1.38 mg/dL (0.0-0.2); BILIRUBIN TOTAL 1.7 mg/dL (0.20-1.00); TOTAL PROTEIN, SERUM 5.9 g/dL (6.4-8.2)
[2019-08-20 17:22] VITALS: BP 128/47
[2019-08-20 22:39] VITALS: BP 111/50
[2019-08-21 01:19] VITALS: BP 111/50
[2019-08-23] MEDS ORDERED: NOR10 PO (21:31)
[2019-08-23] MEDS ORDERED: TOPROL XL25 MG PO (21:32)
[2019-08-23] MEDS ORDERED: HYDRALAZINE HCL50 MG PO (21:32)
== END 2019-08-21 02:15 | disposition short-term general hospital (02) | DRG 444 ==
LOC: ED 18:27 → DU 19:03
PROVIDERS: Emergency Medicine; Internal Medicine Gastroenterology; ADMIT Family Medicine
PROC: 30233K1 Transfusion of Nonautologous Frozen Plasma into Peripheral Vein, Percutaneous Approach (ICD-10-PCS; 2019-08-19)
PROC: 0F798DZ Dilation of Common Bile Duct with Intraluminal Device, Via Natural or Artificial Opening Endoscopic (ICD-10-PCS; principal; 2019-08-20 08:00)
PROC: 0FC98ZZ Extirpation of Matter from Common Bile Duct, Via Natural or Artificial Opening Endoscopic (ICD-10-PCS; 2019-08-20 08:00)
PROC: BF131ZZ Fluoroscopy of Gallbladder and Bile Ducts using Low Osmolar Contrast (ICD-10-PCS; 2019-08-20 08:00)
PROC: 5A1D70Z Performance of Urinary Filtration, Intermittent, Less than 6 Hours Per Day (ICD-10-PCS; 2019-08-20 08:00)
DX: K80.50 Calculus of bile duct without cholangitis or cholecystitis without obstruction (principal); J69.0 Pneumonitis due to inhalation of food and vomit; N18.6 End stage renal disease; I12.0 Hypertensive chronic kidney disease with stage 5 chronic kidney disease or end stage renal disease; R78.81 Bacteremia; D68.9 Coagulation defect, unspecified; E11.22 Type 2 diabetes mellitus with diabetic chronic kidney disease; Z99.2 Dependence on renal dialysis; I25.10 Atherosclerotic heart disease of native coronary artery without angina pectoris; I95.9 Hypotension, unspecified; D72.829 Elevated white blood cell count, unspecified; D63.8 Anemia in other chronic diseases classified elsewhere; E03.9 Hypothyroidism, unspecified; Z20.828 Contact with and (suspected) exposure to other viral communicable diseases
CPT/HCPCS: 43262; 82962; 92526-GN; 92610-GN; C1727; C1769; C2625; G0378; J0885-EC; J1610; J2250; J2543; J3010; J3370; J3430; J7030; J7042; J7050; P9059; Q0092; Q9967